=== PATIENT | female | born 1935 ===

== ENCOUNTER → 2016-11-21 | Outpatient (REF) ==
[~2016-11-21] MED LIST: ADVAIR 250/28 DISKU1 IH; AMBIEN10 MG PO; CARDURA2 MG PO; IBUPROFEN200 M1 PO
[2016-11-21 06:56] LABS: PH 6 (5-8); SQUAMOUS EPITHELIAL 0-2 /hpf; URINE APPEARANCE Clear; URINE BACTERIA None Seen /hpf; URINE BILIRUBIN Negative (NEGATIVE); URINE BLOOD Negative (NEGATIVE); URINE COLOR Yellow; URINE GLUCOSE Negative (NEGATIVE); URINE KETONE Negative (NEGATIVE); URINE UROBILINOGEN Negative (NEGATIVE); URINE WBC 0-2 /hpf
== END ==
LOC: ZMSC 06:47
PROVIDERS: Orthopaedic Surgery
DX: Z02.89 Encounter for other administrative examinations (principal)

== ENCOUNTER → 2024-02-16 | Outpatient (CLI) | payer MEDICARE, BC ==
[~2024-02-16] MED LIST changes: +Gadoterate 15 ML VIAL IV ONE
== END ==
LOC: COL.RAD 09:04
DX: G31.9 Degenerative disease of nervous system, unspecified (principal); I67.82 Cerebral ischemia
CPT/HCPCS: A9575